=== PATIENT | female | born 1955 | race Two or more races ===

== ENCOUNTER 2025-08-12 07:00 | Day surgery (SDC) | payer OTHER ==
[~2025-08-12 07:00] MED LIST: ASPIRINA500 MG; FOLIC ACID 5 MG/ML; HUMALOG MIX 50/53 M1; HUMALOG100 U/ML; HYZAAR 50-12.1 UDTAB; LANTUS100 U/ML; METFORMIN HCL500 MG; NEURONTIN300 MG; VASOTEC5 MG; ZANTAC300 MG; ZOCOR20 MG
[2025-08-12] MEDS ORDERED: MIDAZOLAM HCL 2 MG/2 ML VIAL IV ONE (13:45)
[2025-08-12] MEDS ORDERED: DIPHENHYDRAMINE HCL 50 MG/ML VIAL 1ML IV ONE (13:45)
== END 2025-08-12 15:40 | disposition home or self-care (01) ==
LOC: AMB-ENDOS 07:00
PROVIDERS: ATTEND Colon & Rectal Surgery
DX: K63.5 Polyp of colon (principal); K57.30 Diverticulosis of large intestine without perforation or abscess without bleeding; R15.9 Full incontinence of feces; I10 Essential (primary) hypertension

== ENCOUNTER 2025-08-31 10:00 | Day surgery (SDC) | payer OTHER ==
[2025-08-26 11:09] VITALS: BP 130/100
[~2025-08-31] VITALS: Ht 165.1 cm; Wt 70.3 kg
== END 2025-08-31 15:20 | disposition home or self-care (01) ==
LOC: CIR.AMB 10:00
PROVIDERS: ATTEND Colon & Rectal Surgery
DX: R15.9 Full incontinence of feces (principal); R32 Unspecified urinary incontinence; Z88.0 Allergy status to penicillin; Z88.5 Allergy status to narcotic agent
CPT/HCPCS: 64581; C1778

== ENCOUNTER 2025-09-14 08:00 | Day surgery (SDC) | payer OTHER ==
[~2025-09-14 08:00] MED LIST changes: +BUPIVACAINE HCL 30 ML VIAL IJ ONE; +CEFTRIAXONE SODIUM 2,000 MG VIAL IV ONE; +LIDOCAINE HCL 1%/EPINEPHRINE 20ML VIAL IJ ONE; +METRONIDAZOLE/SODIUM CHLORIDE 500 MG/100 ML PIGGYBACK IV ONE
[2025-09-14] MEDS ORDERED: METRONIDAZOLE/SODIUM CHLORIDE 500 MG/100 ML PIGGYBACK IV ONE (08:14)
[2025-09-14] MEDS ORDERED: LIDOCAINE HCL 1%/EPINEPHRINE 20ML VIAL IJ ONE (08:41)
[2025-09-14] MEDS ORDERED: BUPIVACAINE HCL/MPF 0.5% 30ML VIAL ONE (08:41)
[2025-09-14] MEDS ORDERED: levoFLOXacin IN DEXTROSE 5 % 5 MG/ML PIGGYBAG IV ONE (09:30)
== END 2025-09-14 13:20 | disposition home or self-care (01) ==
LOC: CIR.AMB 08:00
PROVIDERS: ATTEND Colon & Rectal Surgery
DX: R15.9 Full incontinence of feces (principal); R32 Unspecified urinary incontinence
CPT/HCPCS: 64590; 95971; C1767